=== PATIENT | female | born 1955 | race Caucasian/White ===

== ENCOUNTER → 2017-03-26 | Outpatient (CLI) | payer BC ==
--- NOTE | 2017-03-26 16:44 | RADIOLOGY IMAGING REPORT ---
FACILITY: [facility] - [place], [place] PATIENT NAME: MARGIE PATEL : [id number] MR: [id number] V: [id number] EXAM DATE: [id number] ORDERING PHYSICIAN: ORION MEJIA TECHNOLOGIST: Kina Sosa PROCEDURE:BILATERAL DIGITAL SCREENING MAMMOGRAM WITH CAD ASSISTED INTERPRETATION & 3D TOMOSYNTHESIS COMPARISON:11/13/2009 INDICATIONS:SCREENING/ASYMPTOMATIC VIEWS OBTAINED: Bilateral 2D full field CC & MLO & corresponding 3D tomography TISSUE DENSITY: Scattered fibroglandular densities. FINDINGS: There is no mammographic finding suspicious for malignancy & no significant change compared to prior mammogram. DIAGNOSTIC CATEGORY 1--NEGATIVE. RECOMMENDATIONS: ROUTINE ANNUAL SCREENING BILATERAL MAMMOGRAM. IMPRESSION: BIRADS 1: Negative. Dictated by: Celia Smith M.D. on 03/26/2017 at 16:22 Transcribed by: RENAY on 03/26/2017 at 16:28 Approved by: Celia Smith M.D. on 03/26/2017 at 16:43 [facility]
== END ==
LOC: MAMO 03:02
PROVIDERS: ATTEND Family Medicine
DX: Z12.31 Encounter for screening mammogram for malignant neoplasm of breast (principal)
CPT/HCPCS: 77063; 77067

== ENCOUNTER → 2017-04-15 | Outpatient (REF) | payer BC | LOC: ZZSENDIN 12:00 | PROVIDERS: ATTEND Family Medicine | DX: D22.9 Melanocytic nevi, unspecified (principal) | CPT/HCPCS: 88305 ==